=== PATIENT | female | born 1995 | race Caucasian/White ===

== ENCOUNTER 2018-01-05 17:54 | Emergency (ER) | payer OTHER ==
[2018-01-05] MEDS: medroxyPROGESTERone 150 MG/ML SDV IM ONE (20:35)
--- NOTE | 2018-01-10 17:00 | EDM.PDOC ---
ED HPI GENERAL MEDICAL PROBLEM - General Chief Complaint: General Stated Complaint: VAGINAL BLEEDING Time Seen by Provider: 01/05/18 19:40 Source of Information: Reports: Patient, Family History Limitations: Reports: No Limitations - History of Present Illness INITIAL COMMENTS - FREE TEXT/NARRATIVE: This is a 22y F here for concerns of vaginal bleeding. She states the bleeding has been persistent for weeks and not improving. She has had a prior and then returned for a D&C as she had some retained contents with the most recent D&C 3 weeks ago prior to the persistent bleeding. Patient denies any other health concerns, denies any chest pain, no shortness of breath, no dizziness, no low BP, no other symptoms. Duration: Week(s): Severity: Mild Improves with: Reports: None Worsens with: Reports: None Associated Symptoms: Reports: No Other Symptoms - Related Data Allergies Allergy/AdvReac Type Severity Reaction Status Date / Time No Known Allergies Allergy Verified 01/05/18 20:10 Social & Family History - Tobacco Use Smoking Status *Q: Current Some Day Smoker ED ROS GENERAL - Review of Systems Review Of Systems: ROS reveals no pertinent complaints other than HPI. ED EXAM, GENERAL - Physical Exam Exam: See Below Exam Limited By: No Limitations General Appearance: Alert, WD/WN, No Apparent Distress Respiratory/Chest: No Respiratory Distress Cardiovascular: Normal Peripheral Pulses GI/Abdominal: Normal Bowel Sounds Neurological: Alert, Oriented, CN II-XII Intact Course - Vital Signs Last Recorded V/S: Last Vital Signs Temp 36.6 C 01/05/18 18:37 Pulse 79 01/05/18 18:37 Resp 11 L 01/05/18 18:37 BP 111/74 01/05/18 18:37 Pulse Ox - Orders/Labs/Meds Meds: Medications Discontinued Medications Generic Name Dose Route Start Last Admin Trade Name Freq PRN Reason Stop Dose Admin Medroxyprogesterone Acetate 150 mg 01/05/18 20:11 01/05/18 20:35 Depo-Provera IM 01/05/18 20:12 150 mg ONETIME ONE Administration Departure - Departure Time of Disposition: 20:40 Disposition: Home, Self-Care 01 Condition: Good Clinical Impression: DUB (dysfunctional uterine bleeding) - Discharge Information Forms: ED Department Discharge - Problem List & Annotations (1) DUB (dysfunctional uterine bleeding) SNOMED Code(s): 02438379 Code(s): N93.8 - OTHER SPECIFIED ABNORMAL UTERINE AND VAGINAL BLEEDING Status: Acute Priority: High - Problem List Review Problem List Initiated/Reviewed/Updated: Yes - Assessment/Plan Plan: Counseled on DUB and management. Discussed options and risks and benefits. Patient will f/u as directed for any concerns or issues. Patient decided on depo injection and f/u with her OB provider when she goes home tomorrow. Patient agrees with plan of care and for f/u for any dizziness or low BP or symptoms of anemia. Patient will also f/u for continued bleeding.
== END 2018-01-05 20:10 | disposition home or self-care (01) ==
LOC: LB.ED 17:54
DX: N93.8 Other specified abnormal uterine and vaginal bleeding (principal); F17.210 Nicotine dependence, cigarettes, uncomplicated
CPT/HCPCS: 96372; 99283-25; J1050